=== PATIENT | male | born 1985 | race Hispanic/Latino ===

== ENCOUNTER 2018-01-16 19:17 | Emergency (ER) | payer OTHER ==
[2018-01-16] MEDS ORDERED: LIDOCAINE 1%-EPI 1:100,000 20 ML VIAL IJ ONE (19:45)
== END 2018-01-16 20:47 | disposition home or self-care (01) ==
LOC: EDH 19:17
DX: S61.512A Laceration without foreign body of left wrist, initial encounter (principal); Z72.0 Tobacco use; W01.198A Fall on same level from slipping, tripping and stumbling with subsequent striking against other object, initial encounter; Y93.89 Activity, other specified; Y92.89 Other specified places as the place of occurrence of the external cause; Y99.8 Other external cause status
CPT/HCPCS: 12032; 73100; 99284; J3490; 12042